=== PATIENT | female | born 1955 | race Hispanic/Latino ===

== ENCOUNTER 2024-07-14 18:49 | Emergency (ER) | payer OTHER ==
[2024-07-14] MEDS ORDERED: ONDANSETRON 4 MG/2 ML VIAL ONE (19:27)
[2024-07-14] MEDS ORDERED: MORPHINE 4 MG/ML SYR ONE ×2 (19:28→20:38)
--- NOTE | 2024-07-14 19:30 | RAD REPORT ---
Exam:Forearm Left Clinical history: Left forearm pain Findings: Impacted comminuted markedly displaced fracture distal radius.
--- NOTE | 2024-07-14 20:52 | ER ---
Nurse's Notes [facility] Name: Sri Sanchez Age: 68 yrs Sex: Female : 1955 Arrival Date: 07/14/2024 Time: 18:49 Bed 4 Private MD: Diagnosis: Impacted fracture of left distal radius Presentation: 07/14 18:58 Chief complaint: Patient states: Left wrist pain S/P fall. Pt states that she tripped cm10 and fell, didn't hit head. No LOC. Pt noted to have swelling and an abrasion. Coronavirus screen: Client denies travel out of the [place] in the last 14 days. Ebola Screen: Patient denies travel to an Ebola-affected area in the 21 days before illness onset. No symptoms or risks identified at this time. Initial Sepsis Screen: Does the patient meet any 2 criteria? No. Patient's initial sepsis screen is negative. Does the patient have a suspected source of infection? No. Patient's initial sepsis screen is negative. Risk Assessment: Do you want to hurt yourself or someone else? Patient reports no desire to harm self or others. Onset of symptoms was July 14, 2024. 18:58 Method Of Arrival: Ambulatory cm10 18:58 Acuity: DU 3 cm10 Triage Assessment: 18:59 General: Appears in no apparent distress. uncomfortable, Behavior is calm, cooperative. cm10 Pain: Complains of pain in left wrist Pain currently is 10 out of 10 on a pain scale. Neuro: No deficits noted. Level of Consciousness is awake, alert, Oriented to person, place, time, situation, Appropriate for age. Respiratory: No deficits noted. Airway is patent Respiratory effort is even, unlabored, Respiratory pattern is regular, symmetrical. 19:30 Injury Description: Deformity sustained to left wrist. br2 Historical: - Allergies: 18:59 No Known Allergies; cm10 - PMHx: 18:59 Seizures; cm10 - PSHx: 18:59 None; cm10 - Immunization history:: Adult Immunizations up to date, Last tetanus immunization: > 10 years ago. - Infectious Disease History:: Denies. - Social history:: Smoking status: Patient denies any tobacco usage or history of. Screenin:30 [facility] ED Fall Risk Assessment (Adult) History of falling in the last 3 months, br2 including since admission Yes- single mechanical fall (1 pt) Confusion or Disorientation No (0 pts) Intoxicated or Sedated No (0 pts) Impaired Gait No (0 pts) Mobility Assist Device Used No (0 pt) Altered Elimination No (0 pt) Score/Fall Risk Level 0 - 2 = Low Risk Oriented to surroundings. Abuse screen: Denies threats or abuse. Denies injuries from another. Nutritional screening: No deficits noted. Tuberculosis screening: No symptoms or risk factors identified. Assessment: 07:15 Reassessment: Patient and/or family updated on plan of care and expected duration. Pain br2 level reassessed. Patient is alert, oriented x 3, equal unlabored respirations, skin warm/dry/pink. General: Appears uncomfortable, Behavior is calm, cooperative. Pain: Complains of pain in medial aspect of left wrist Pain does not radiate. Pain currently is 10 out of 10 on a pain scale. Musculoskeletal: Range of motion: limited in left wrist Bony deformity noted of left wrist. 20:07 Reassessment: Patient and/or family updated on plan of care and expected duration. Pain br2 level reassessed. Patient is alert, oriented x 3, equal unlabored respirations, skin warm/dry/pink. Patient states feeling better. Patient states symptoms have improved. Vital Signs: 07:15 BP 200 / 64; Pulse 87; Resp 18 S; Pulse Ox 98% on R/A; Pain 10/10; br2 18:58 BP 169 / 80; Pulse 80; Resp 16; Temp 98.4(O); Pulse Ox 100% on R/A; Weight 38.56 kg; cm10 Height 5 ft. 1 in. ; Pain 10/10; 20:08 BP 183 / 78; Pulse 72; Resp 18 S; Pulse Ox 98% on R/A; Pain 8/10; br2 18:58 Body Mass Index 16.06 (38.56 kg, 154.94 cm) cm10 07:15 Pain Scale: Adult br2 18:58 Pain Scale: Adult cm10 20:08 Pain Scale: Adult br2 ED Course: 18:51 Patient arrived in ED. ra3 18:54 Pat[facility] Tomlinson [facility]-C [facility]. kb 18:54 Edgar Hawk MD is Attending Physician. kb 18:59 Triage completed. cm10 18:59 Arm band placed on right wrist. Patient placed in an exam room, on a stretcher. cm10 19:08 Forearm Left XRAY In Process Unspecified. EDMS 19:13 Chio Cintron, RN is Primary Nurse. br2 19:30 Patient has correct armband on for positive identification. Bed in low position. Call br2 light in reach. Side rails up X 1. Provided Education on: PLAN OF CARE. 19:31 Inserted saline lock: 22 gauge in right hand, using aseptic technique. Flushed with 10 br2 mL NS. 21:00 WRIST QUICKFIT LEFT APPLIED, PT TOLERATED WELL. br2 21:13 IV discontinued, intact, bleeding controlled, No redness/swelling at site. Pressure br2 dressing applied. 21:17 No provider procedures requiring assistance completed. br2 Administered Medications: 19:31 Drug: morphine IVP or IV 4 mg IVP once over 4 mins Route: IVP; Infused Over: 4 mins; br2 Site: right hand; 21:15 Follow up: Response: No adverse reaction; Pain is decreased br2 19:31 Drug: Ondansetron IVP 4 mg IVP once; over 2 minutes Route: IVP; Site: right hand; br2 20:15 Follow up: Response: No adverse reaction br2 20:41 Drug: morphine IVP or IV 4 mg IVP once over 4 mins Route: IVP; Infused Over: 4 mins; br2 Site: right hand; 21:17 Follow up: Response: No adverse reaction; Pain is decreased br2 Medication: 21:17 VIS not applicable for this client. br2 Outcome: 20:52 Discharge ordered by MD. fitch 21:17 Patient left the ED. br2 21:17 Discharged to home via wheelchair, br2 21:17 Condition: stable 21:17 Discharge instructions given to patient, Instructed on discharge instructions, follow up and referral plans. medication usage, Demonstrated understanding of instructions, follow-up care, medications, Prescriptions given X 2, Signatures: Dispatcher [employer] EDMS Patty Tomlinson, Mary Lima, RN RN cm10 Elizabeth Richardson ra3 Chio Cintron, RN RN br2
--- NOTE | 2024-07-14 20:53 | EDPHYS ---
Physician Documentation [facility] Name: Sri Sanchez Age: 68 yrs Sex: Female : 1955 Arrival Date: 07/14/2024 Time: 18:49 Bed 4 Private MD: ED Physician Edgar Hawk HPI: 07/14 19:42 This 68 yrs old Female presents to ER via Ambulatory with complaints of Wrist kb Injury - Left. 19:42 Pt is a 68 year old female who presents for left wrist pain and deformity after a trip kb and fall just ferry [place]. Denies any other injuries. Denies hitting head, loc. . Historical: - Allergies: 18:59 No Known Allergies; cm10 - PMHx: 18:59 Seizures; cm10 - PSHx: 18:59 None; cm10 - Immunization history:: Adult Immunizations up to date, Last tetanus immunization: > 10 years ago. - Infectious Disease History:: Denies. - Social history:: Smoking status: Patient denies any tobacco usage or history of. ROS: 19:37 Constitutional: As per HPI kb Exam: 19:37 Constitutional: This is a well developed, well nourished patient who is awake, alert, kb and in no acute distress. Head/Face: Normocephalic, atraumatic. ENT: Moist Mucous membranes Cardiovascular: Regular rate Respiratory: Respirations even and unlabored. No increased work of breathing. Talking in full sentences Neuro: Awake and alert, GCS 15, oriented to person, place, time, and situation. 19:37 Musculoskeletal/extremity: Extremities: grossly normal except: noted in the left wrist: decreased ROM, deformity, pain, swelling, tenderness, ROM: limited active range of motion, in the left wrist, Circulation is intact in all extremities. Sensation intact. 19:41 Skin: injury, abrasion(s), very small abrasion noted, of the left wrist, kb Vital Signs: 07:15 BP 200 / 64; Pulse 87; Resp 18 S; Pulse Ox 98% on R/A; Pain 10/10; br2 18:58 BP 169 / 80; Pulse 80; Resp 16; Temp 98.4(O); Pulse Ox 100% on R/A; Weight 38.56 kg; cm10 Height 5 ft. 1 in. ; Pain 10/10; 20:08 BP 183 / 78; Pulse 72; Resp 18 S; Pulse Ox 98% on R/A; Pain 8/10; br2 18:58 Body Mass Index 16.06 (38.56 kg, 154.94 cm) cm10 07:15 Pain Scale: Adult br2 18:58 Pain Scale: Adult cm10 20:08 Pain Scale: Adult br2 MDM: 18:54 Medical Screening Exam initiated kb 19:41 Differential diagnosis: dislocation, open fracture, closed fracture. Data reviewed: kb vital signs, nurses notes. Historians other than the Patient: Spouse/Significant Other: . Counseling: I had a detailed discussion with the patient and/or guardian regarding the historical points, exam findings, and any diagnostic results supporting the discharge/admit diagnosis, radiology results, the need for outpatient follow up, a orthopedic surgeon, to return to the emergency department if symptoms worsen or persist or if there are any questions or concerns that arise at home. 19:41 Management of patient was discussed with the following: Dr Hawk, who reviewed xray and does not recommend reducing fracture at this time. Recommends splint in place and follow up with orthopedics.. 07/14 18:58 Order name: Forearm Left XRAY; Complete Time: 19:34 07/14 18:58 Order name: IV Start 07/14 19:37 Order name: [place] Forearm Splint 07/14 19:37 Order name: Sling Administered Medications: 19:31 Drug: morphine IVP or IV 4 mg IVP once over 4 mins Route: IVP; Infused Over: 4 mins; br2 Site: right hand; 21:15 Follow up: Response: No adverse reaction; Pain is decreased br2 19:31 Drug: Ondansetron IVP 4 mg IVP once; over 2 minutes Route: IVP; Site: right hand; br2 20:15 Follow up: Response: No adverse reaction br2 20:41 Drug: morphine IVP or IV 4 mg IVP once over 4 mins Route: IVP; Infused Over: 4 mins; br2 Site: right hand; 21:17 Follow up: Response: No adverse reaction; Pain is decreased br2 Disposition Summary: 07/14/24 20:52 Discharge Ordered Notes: Location: Home Condition: Stable Diagnosis - Impacted fracture of left distal radius kb Followup: kb - With: Emergency Department - When: As needed - Reason: Worsening of condition Followup: kb - With: Private Physician - When: 2 - 3 days - Reason: Recheck today's complaints, Continuance of care, Re-evaluation by your physician Discharge Instructions: - Discharge Summary Sheet kb - Radial Fracture kb Forms: - Medication Reconciliation Form kb - Antibiotic Education kb - Prescription Opioid Use kb - Patient Portal Instructions kb - Leadership Thank You Letter kb Prescriptions: - acetaminophen-codeine 300-30 mg Oral tablet - take 1 tablet ORAL route every 6 hours As needed; 12 tablet; Refills: 0, kb Product Selection Permitted - Diclofenac Sodium 75 mg Oral Tablet Sustained Release - take 1 tablet ORAL route 2 times per day; 30 tablet; Refills: 0, Product kb Selection Permitted Signatures: Dispatcher [employer] EDMS Patty Tomlinson FNP-C FNP-Mary Vaughan, RN RN cm10 Chio Cintron RN RN br2 Corrections: (The following items were deleted from the chart) 20:30 19:41 Management of patient was discussed with the following: Dr Hawk, who does not kb recommend reducing fracture at this time. Recommends splint in place and follow up with orthopedics.. kb
[2024-07-15 03:47] VITALS: TEMP 98.4
[2024-07-15 03:53] VITALS: BP 183/78; O2SAT 98
== END 2024-07-14 21:17 | disposition home or self-care (01) ==
LOC: ER 18:49
PROC: 2W3DX1Z Immobilization of Left Lower Arm using Splint (ICD-10-PCS; principal; 2024-07-14)
DX: S52.592A Other fractures of lower end of left radius, initial encounter for closed fracture (principal); W01.0XXA Fall on same level from slipping, tripping and stumbling without subsequent striking against object, initial encounter
CPT/HCPCS: 73090; 96375; 96374; 99284; 29125; J2405

== ENCOUNTER 2024-07-20 17:05 | Emergency (ER) | payer OTHER ==
--- NOTE | 2024-07-20 19:38 | RAD REPORT ---
EXAMINATION: UPPER EXTREMITY VENOUS UNILATE CLINICAL INDICATION: Female, 68 years old. [facility] MAIN LUE DVT eval Bed Name: DIS1 TECHNIQUE: Complete venous duplex sonography of the left upper extremity was performed. The examinati on included compression for vein patency, color Doppler imaging and flow augmentation in response to distal compression of the internal jugular, brachiocephalic, subclavian, axillary, brachial, radia l, ulnar, cephalic and basilic veins. COMPARISON: No prior exam. FINDINGS: Duplex sonography testing of the veins of the left upper extremity is completed. Color flow imaging s hows all veins to be compressible with appropriate color filling. Pulsatile and phasic flow is present within the upper extremity deep and superficial veins examined. IMPRESSION: There is no deep vein or superficial vein thrombosis.
--- NOTE | 2024-07-20 20:00 | ER ---
Nurse's Notes [facility] Name: Sri Sanchez Age: 68 yrs Sex: Female : 1955 Arrival Date: 07/20/2024 Time: 17:05 Bed DX2 Private MD: Diagnosis: Arm Swelling Presentation: 07/20 17:50 Chief complaint: Patient states: Dx with left radial fracture on 07/14/24 and reports aa5 swelling to left hand that began 07/16/24. Wrist splint noted to left wrist, removed by Dr. Akhtar. Coronavirus screen: At this time, the client does not indicate any symptoms associated with coronavirus-19. Ebola Screen: Patient denies travel to an Ebola-affected area in the 21 days before illness onset. Initial Sepsis Screen: Does the patient meet any 2 criteria? No. Patient's initial sepsis screen is negative. Does the patient have a suspected source of infection? No. Patient's initial sepsis screen is negative. 17:50 Acuity: DU 4 aa5 17:50 Method Of Arrival: Ambulatory aa5 17:50 Risk Assessment: Do you want to hurt yourself or someone else? Patient reports no aa5 desire to harm self or others. 17:50 Onset of symptoms was 2023. aa5 Historical: - Allergies: 17:52 No Known Allergies; aa5 - PMHx: 17:52 Seizures; aa5 - Immunization history:: Adult Immunizations unknown. - Infectious Disease History:: Denies. - Social history:: Smoking status: Patient denies any tobacco usage or history of. Screenin:44 [facility] ED Fall Risk Assessment (Adult) History of falling in the last 3 months, vc1 including since admission No falls in past 3 months (0 pts) Confusion or Disorientation No (0 pts) Intoxicated or Sedated No (0 pts) Impaired Gait No (0 pts) Mobility Assist Device Used No (0 pt) Altered Elimination No (0 pt) Score/Fall Risk Level 0 - 2 = Low Risk Oriented to surroundings, Maintained a safe environment, Educated pt \T\ family on fall prevention, incl call for assistance when getting out of bed. Abuse screen: Denies threats or abuse. Nutritional screening: No deficits noted. Tuberculosis screening: No symptoms or risk factors identified. Vital Signs: 17:50 BP 171 / 73; Pulse 82; Resp 18 S; Temp 97.8(TE); Pulse Ox 98% on R/A; aa5 ED Course: 17:07 Patient arrived in ED. ra3 17:14 David Akhtar MD is Attending Physician. ec2 17:50 Arm band placed on. aa5 17:51 Triage completed. aa5 18:35 UPPER EXTREMITY VENOUS UNILATE In Process Unspecified. EDMS 20:44 No provider procedures requiring assistance completed. Patient did not have IV access vc1 during this emergency room visit. 20:45 Provided Education on: alternate between tylenol and motrin. vc1 20:45 discharged from diagnostic chair. vc1 Administered Medications: No medications were administered Medication: 20:45 VIS not applicable for this client. vc1 Outcome: 19:59 Discharge ordered by . ec2 20:45 Discharged to home ambulatory, with significant other, vc1 20:45 Condition: good 20:45 Discharge instructions given to patient, significant other, Instructed on discharge instructions, follow up and referral plans. Demonstrated understanding of instructions, follow-up care, 20:46 Patient left the ED. vc1 Signatures: Dispatcher [employer] EDAZ Edel Chau, RN RN aa5 Christal Youssef RN RN vc1 David Akhtar MD MD ec2 Elizabeth Richardson ra3
--- NOTE | 2024-07-20 20:00 | EDPHYS ---
Physician Documentation [facility] Name: Sri Sanchez Age: 68 yrs Sex: Female : 1955 Arrival Date: 07/20/2024 Time: 17:05 Bed DX2 Private MD: ED Physician David Akhtar HPI: 07/20 17:56 This 68 yrs old Female presents to ER via Ambulatory with complaints of Hand ec2 Swelling - left post injury. 17:56 Patient arrives today for evaluation of left arm swelling. Reports that she was ec2 recently diagnosed with a fracture is having worsening swelling. Reports swelling is confined to the forearm and hand. Reports that she prescribed diclofenac as well as Tylenol 3 for pain. States that she is scheduled to see orthopedic surgery in 2 days.. Historical: - Allergies: 17:52 No Known Allergies; aa5 - PMHx: 17:52 Seizures; aa5 - Immunization history:: Adult Immunizations unknown. - Infectious Disease History:: Denies. - Social history:: Smoking status: Patient denies any tobacco usage or history of. ROS: 17:56 Constitutional: as per hpi ec2 Exam: 17:56 Constitutional: GEN: NAD Head: atraumatic Eyes: EOMI Ears: External ears are ec2 normal. CV: regular rate LUNGS: no respiratory distress ABD: non-distended SKIN: no evidence of rashes MSK: Left upper extremity with ecchymosis noted from the elbow to the forearm with significant swelling to the hand, intact distal neurovascular status Vital Signs: 17:50 BP 171 / 73; Pulse 82; Resp 18 S; Temp 97.8(TE); Pulse Ox 98% on R/A; aa5 MDM: 17:35 Medical Screening Exam initiated ec2 17:56 Data reviewed: vital signs, nurses notes. ED course: Patient arrives today for left ec2 upper extremity swelling. Will obtain ultrasound to evaluate for DVT. Differential includes DVT, dependent edema given the patient's known fracture.. 19:59 ED course: Ultrasound shows no acute DVT. Will discharge, return precautions given. ec2 Instructed to follow-up with outpatient surgery.. 07/20 18:04 Order name: UPPER EXTREMITY VENOUS UNILATE; Complete Time: 19:59 EDMS Administered Medications: No medications were administered Disposition Summary: 07/20/24 19:59 Discharge Ordered Notes: Location: Home ec2 Condition: Stable ec2 Diagnosis - Arm Swelling ec2 Followup: ec2 - With: Private Physician - When: - Reason: Re-evaluation by your physician Discharge Instructions: - Discharge Summary Sheet ec2 - Closed Reduction for Wrist or Forearm, Care After ec2 Forms: - Medication Reconciliation Form ec2 - Antibiotic Education ec2 - Prescription Opioid Use ec2 - Patient Portal Instructions ec2 - Leadership Thank You Letter ec2 Signatures: Dispatcher [employer] Edel Lewis RN RN aa5 David Akhtar MD MD ec2 Corrections: (The following items were deleted from the chart) 18:04 17:56 Extremity Venous Uni [email or web address] ordered. ANURADHA LING
[2024-07-20 23:16] VITALS: BP 171/73; TEMP 97.8; O2SAT 98
== END 2024-07-20 20:46 | disposition home or self-care (01) ==
LOC: ER 17:05
DX: R22.32 Localized swelling, mass and lump, left upper limb (principal)
CPT/HCPCS: 93971; 99282

== ENCOUNTER 2024-07-24 08:07 | Day surgery (SDC) | payer OTHER ==
[2024-07-24] MEDS ORDERED: Ringers Lactate 1,000 ML IV ONE (08:40)
[2024-07-24 09:13] LABS: Absolute Basophils 0.1 K/uL (0-0.5); Absolute Eosinophils 0.2 K/uL (0-0.5); Absolute Lymphocytes (CBC) 1.1 K/uL (0.7-4.9); Absolute Monocytes 0.4 K/uL (0.1-1.3); Absolute Neutrophil 2.4 K/uL (1.8-8.0); Eosinophils % 4.6 % (0-4.4); Hematocrit 37.4 % (36.0-45.0); Hemoglobin 12.9 g/dL (12.0-15.0); MCH 34.4 pg (27.0-35.0); MCHC 34.4 g/dL (32.0-36.0); MCV 99.7 fL (80-100); Monocytes % 9.1 % (3.3-12.3); Neutrophils % 57.3 % (41.7-73.7); Nucleated Red Blood Cells % 0.2 % (0-0); Platelets 326 thou/uL (152-406); RBC Red Blood Cell Count 3.75 M/uL (3.86-4.86); Red Cell Distribution Width 12.7 % (12.1-15.2)
[2024-07-24 09:25] LABS: Anion Gap 9.5 mEq/L (5.0-15.0); Potassium 3.5 mEq/L (3.5-5.1)
[2024-07-24] MEDS ORDERED: EPINEPHRINE 1 MG/ML VIAL ONE (09:54)
[2024-07-24] MEDS ORDERED: FENTANYL CITR 100 MCG/2 ML ONE (09:54)
[2024-07-24] MEDS ORDERED: dexAMETHasone 10 MG/ML VIAL ONE (09:54)
[2024-07-24] MEDS ORDERED: LIDOCAINE 1% MPF 5 ML VIAL ONE (09:54)
[2024-07-24] MEDS ORDERED: MIDAZOLAM HCL 2 MG/2 ML INJ ONE (09:55)
[2024-07-24] MEDS ORDERED: BUPIVACAINE 0.5% PF 10 ML VIAL ONE (09:55)
[2024-07-24] MEDS ORDERED: propofoL 200 MG/20 ML VIAL IV ONE (11:26)
[2024-07-24] MEDS ORDERED: LIDOCAINE 2% MPF 5 ML VIAL ONE (11:26)
[2024-07-24] MEDS: CEFAZOLIN SODIUM 1 GM/VIAL ONE (11:30)
[2024-07-24 13:45] VITALS: O2SAT 100
--- NOTE | 2024-07-24 13:46 | RAD REPORT ---
Exam: Fluoroscopy less than one hour CLINICAL HISTORY: radial fracture FINDINGS: 6 intraoperative spot images demonstrate plate and screws affixing a radial fracture. Fluoroscopy davian e 2.8 minutes. Surgery performed by Dr. Jacobs
--- NOTE | 2024-07-24 14:06 | OP ---
Date of Procedure: 07/24/2024 Surgeon: Jg Jacobs MD Preoperative Diagnoses: 1.Severely comminuted intra-articular distal radius fracture on the left. 2.Median nerve paresthesias after trauma. Procedure Performed: 1.Left distal radius open reduction and internal fixation using the Acumed 2 volar radius plating se t. 2.Open carpal tunnel release. Estimated Blood Loss: Less than 10 cc. Complications: There were no complications. Indications For Operation: Ms. Sanchez is a 69-year-old female, who unfortunately injured her left u pper extremity. She was seen and examined in my office, when she had no splint and has obvious signi ficant deformity of the wrist as well as some abrasions dorsally at the ulna. However, there is no s ign of an open injury. On neurovascular examination, she had numbness in the median nerve distributi on and denied numbness in the region of the small finger. There was no sign of a compartment syndrom e. However, she did appear to have paresthesias in the region of the median nerve. Risks, benefits, and alternatives of different methods of treating this have been discussed with the family and the p atient and she was placed in a well-padded splint with plans for operative intervention today. On op erative intervention today, she is given a block. Again, discussed the treatment plan with her. She states she understands things as presented and wishes to proceed including risks, benefits, and alte rnatives. Description Of Procedure: The patient was taken to the operating room and placed in supine position. General anesthesia was obtained by the Anesthesia staff. Following this, a well-padded tourniquet was placed on the superior left arm. Left upper extremity was then prepped and draped in a usual fas hion for the procedure. After this, the C-arm was brought in to assess whether or not we can get a g ood reduction with closed techniques. Obviously, we could bring it essentially a very nearly out to length, but it was freely floating given the amount of comminution. The arm was then elevated, but n ot exsanguinated. Tourniquet was raised. A standard volar approach for Eugene was then taken down ca refully through skin and soft tissues. Meticulous hemostasis being maintained using Bovie electrocau armand. This leads down to the flexor carpi radialis, which was then retracted radialward. The underl michael sheath was exploited and the muscle belly and tendon of the flexor pollicis longus was identifie d. This incision then swept gently ulnarward to protect the median nerve. After this, the fracture was easily seen with comminution of the distal end of the radius and the incision extended slightly t o allow for better visualization of the intact bone. After this closed reduction techniques, even wi th the use of a cyst, Hawley elevator could only partially reduce the fracture. Therefore, decision w as made to place the more distal aspect of the plate on and selection of this area is somewhat compro mised by the free floating nature of the distal radius as well as the need to correct for volar displ acement. Decision was made to place a little more proximal than normal as this would apply a better volar buttress. Also keep the more distal end of the plate out of the watershed area in hopes that t his would not abrade the flexor pollicis longus, as it is going to be somewhat difficult to apply dir ectly to the volar surface of the distal radius. It was then applied and attention was then turned t o placing the more proximal screws and used closed reduction techniques as well as traction on the di stal plate were then used to obtain a good reduction with very good buttressing of the distal fragmen t and appeared to be solid. Added 2 styloid screws to assist and stability of this fragment and plac ed the remaining screws proximally. After this, it was observed under biplanar C-arm radiography and does appear to be a bit more proximal as planned to allow for better buttress, although it does appe ar that we do have some good fixation of the distal fragment. The wound was irrigated and attention was then turned to the carpal tunnel. A standard carpal tunnel incision which parallels the thenar c rease, slight ulnar deviation at the most distal wrist crease was performed. These are 2 separate in cisions. It was then taken down carefully through skin only. Meticulous hemostasis being maintained using bipolar electrocautery. This leads down to the palmar fascia, which was then divided longitud inally. Any obstructions of the transverse carpal ligament were gently moved to the side, as an inci bryan was made in the transverse carpal ligament, which proceeded very carefully from a proximal to di stal direction until there were no constricting bands. I then proceeded in a distal to proximal dire ction until no constricting band. The median nerve underlying appeared to be intact. The wound was gently irrigated and at no time were any sharp instruments placed outside the direct operative field. After this, both incisions were closed. The tourniquet was dropped. The patient was placed in a w ell-padded volar splint, awakened, and taken to recovery in good condition. No complications. /MODTio Voice ID: [id number] Report ID: [id number]
[2024-07-24 15:20] VITALS: BP 165/56; TEMP 97
== END 2024-07-24 15:05 | disposition home or self-care (01) ==
LOC: OR 08:07
PROVIDERS: ATTEND Orthopaedic Surgery
PROC: 01N50ZZ Release Median Nerve, Open Approach (ICD-10-PCS; principal; 2024-07-24 11:30)
PROC: 0PSJ04Z Reposition Left Radius with Internal Fixation Device, Open Approach (ICD-10-PCS; 2024-07-24 11:30)
DX: S52.572A Other intraarticular fracture of lower end of left radius, initial encounter for closed fracture (principal); S64.12XA Injury of median nerve at wrist and hand level of left arm, initial encounter; R20.2 Paresthesia of skin; G56.02 Carpal tunnel syndrome, left upper limb
CPT/HCPCS: 85025; 80048; 36415; 64721; 25608; C1713; J2704; J2003 ×2; J2250; J3010; J1100; J0171; J7120; J0690; C1889; 76000

== ENCOUNTER 2024-07-25 16:57 | Emergency (ER) | payer OTHER ==
--- NOTE | 2024-07-25 17:42 | ER ---
Nurse's Notes [facility] Name: Sri Sanchez Age: 69 yrs Sex: Female : 1955 Arrival Date: 07/25/2024 Time: 16:57 Bed IW3 Private MD: Diagnosis: Pain in left wrist Presentation: 07/25 17:35 Chief complaint: Patient states: she fell and broke her arm and had surgery yesterday kc6 but reports bleeding through her bandage today. Coronavirus screen: At this time, the client does not indicate any symptoms associated with coronavirus-19. Ebola Screen: No symptoms or risks identified at this time. Complicating Factors: There are no complicating factors for this patient. Initial Sepsis Screen: Does the patient meet any 2 criteria? No. Patient's initial sepsis screen is negative. Does the patient have a suspected source of infection? No. Patient's initial sepsis screen is negative. Risk Assessment: Do you want to hurt yourself or someone else? Patient reports no desire to harm self or others. Onset of symptoms was July 25, 2024. 17:35 Method Of Arrival: Ambulatory [facility] 17:35 Acuity: DU 4 kc6 Historical: - Allergies: 17:37 No Known Allergies; kc6 - Home Meds: 17:37 None [Active]; kc6 - PMHx: 17:37 Seizures; kc6 - PSHx: 17:37 None; kc6 - Immunization history:: Adult Immunizations up to date. - Infectious Disease History:: Denies. - Social history:: Smoking status: Patient denies any tobacco usage or history of. Vital Signs: 17:35 BP 145 / 56; Pulse 81; Resp 17 S; Temp 98.1(O); Pulse Ox 100% on R/A; Weight 38.56 kg kc6 (R); Height 5 ft. 1 in. (R); Pain 4/10; 17:35 Body Mass Index 16.06 (38.56 kg, 154.94 cm) kc6 17:35 Pain Scale: Adult kc6 ED Course: 17:00 Patient arrived in ED. mg5 17:00 Leonel Lanza F[facility]-C [facility] 17:00 Omar Sosa MD is Attending Physician. dr5 17:37 Triage completed. kc6 17:37 Arm band placed on. kc6 17:45 No provider procedures requiring assistance completed. Patient did not have IV access kc6 during this emergency room visit. Administered Medications: No medications were administered Outcome: 17:41 Discharge ordered by . dr5 17:44 Discharged to home ambulatory, with significant other, kc6 17:44 Condition: good 17:44 Discharge instructions given to patient, significant other, Instructed on discharge instructions, follow up and referral plans. wound care, Demonstrated understanding of instructions, follow-up care, wound care, splint care, 17:45 Patient left the ED. kc6 Signatures: Gabbi Baca, RN RN [id number] Imelda Colvin mg5 Leonel Lanza, SPUD GRADER-C SPUD GRADER-Cdr5
--- NOTE | 2024-07-25 17:42 | EDPHYS ---
Physician Documentation [facility] Name: Sri Sanchez Age: 69 yrs Sex: Female : 1955 Arrival Date: 07/25/2024 Time: 16:57 Bed IW3 Private MD: ED Physician Omar Sosa HPI: 07/25 17:42 This 69 yrs old Female presents to ER via Ambulatory with complaints of dr5 Laceration To Hand. 17:42 The laceration(s) is(are) located on the dorsal aspect of left forearm and left wrist. dr5 Patient is a 69-year-old female who presents with bleeding from the wound after surgery from yesterday. Patient had surgery on her left wrist. Patient denies any new pain. Patient also denies numbness or tingling to the left wrist and fingers. Historical: - Allergies: 17:37 No Known Allergies; kc6 - Home Meds: 17:37 None [Active]; kc6 - PMHx: 17:37 Seizures; kc6 - PSHx: 17:37 None; kc6 - Immunization history:: Adult Immunizations up to date. - Infectious Disease History:: Denies. - Social history:: Smoking status: Patient denies any tobacco usage or history of. ROS: 17:42 Constitutional: as per hpi dr5 Exam: 17:42 Constitutional: This is a well developed, well nourished patient who is awake, alert, dr5 and in no acute distress. Head/Face: Normocephalic, atraumatic. Eyes: Pupils equal round and reactive to light, extra-ocular motions intact. Lids and lashes normal. Conjunctiva and sclera are non-icteric and not injected. Cornea within normal limits. Periorbital areas with no swelling, redness, or edema. Chest/axilla: Normal chest wall appearance and motion. Nontender with no deformity. No lesions are appreciated. Cardiovascular: Regular rate and rhythm with a normal S1 and S2. Normal PMI, no JVD. No pulse deficits. Respiratory: Lungs have equal breath sounds bilaterally, clear to auscultation. No rales, rhonchi or wheezes noted. No increased work of breathing, no retractions or nasal flaring. Back: No spinal tenderness. No costovertebral tenderness. Full range of motion. Skin: Warm, dry with normal turgor. Normal color with no rashes, no lesions, and no evidence of cellulitis. Vital Signs: 17:35 BP 145 / 56; Pulse 81; Resp 17 S; Temp 98.1(O); Pulse Ox 100% on R/A; Weight 38.56 kg kc6 (R); Height 5 ft. 1 in. (R); Pain 4/10; 17:35 Body Mass Index 16.06 (38.56 kg, 154.94 cm) kc 17:35 Pain Scale: Adult kc6 MDM: 17:00 Medical Screening Exam initiated dr5 17:42 Differential diagnosis: superficial laceration, tendon injury, vascular injury. Data dr5 reviewed: vital signs, nurses notes. Consideration of Admission/Observation Escalation of care including admission/observation considered. Considered isolation versus admission if laceration looked infected or bleeding when stopped.. ED course: No bleeding noted on exam. Wound does not have any signs of infection or cellulitis. Patient has follow up appointment in 2 weeks with surgeon.. Administered Medications: No medications were administered Disposition: 19:39 Co-signature as Attending Physician, Omar Sosa MD I reviewed the patient's care rn provided by the Advanced Practice Provider and agree with the diagnosis and treatment plan. Disposition Summary: 07/25/24 17:41 Discharge Ordered Notes: Location: Home dr5 Condition: Stable dr5 Diagnosis - Pain in left wrist dr5 Followup: dr5 - With: Emergency Department - When: As needed - Reason: Worsening of condition Followup: dr5 - With: Private Physician - When: 1 - 2 days - Reason: Recheck today's complaints, Continuance of care, Re-evaluation by your physician Discharge Instructions: - Discharge Summary Sheet dr5 - Wrist Pain, Adult dr5 - Sutured Wound Care, [id number] dr5 Forms: - Medication Reconciliation Form dr5 - Patient Portal Instructions dr5 - Leadership Thank You Letter dr5 Signatures: Omar Sosa MD MD rn Campbell, Kaitlyn, RN RN kc6 Leonel Lanza, MARIAM RUBI-Cdr5
[2024-07-25 19:33] VITALS: BP 145/56; TEMP 98.1; O2SAT 100
== END 2024-07-25 17:45 | disposition home or self-care (01) ==
LOC: ER 16:57
DX: M25.532 Pain in left wrist (principal)
CPT/HCPCS: 99283